=== PATIENT | male | born 1960 | race Hispanic/Latino ===

== ENCOUNTER 2022-07-07 16:56 | Inpatient (IN) | payer SELFPAY ==
[2022-07-07 17:52] LABS: Hemoglobin 9.6 g/dL (14.0-18.0); Mean Corpuscular HGB CONC 32.7 g/dL (32.0-36.0); Mean Corpuscular Hemoglobin 31.7 pg (27.0-31.0); Mean Corpuscular Volume 97.1 fl (78.0-98.0); Platelet Count 69 10x3/uL (130-400); RBC Distribution Width 14.7 % (11.5-14.5); Red Blood Cell (RBC) Count 3.03 mill/uL (4.70-6.10); White Blood Cell (WBC) Count 7.9 10x3/uL (4.8-10.8)
[2022-07-07 18:01] LABS: INR-International Normal Ratio 1.8; PTT 35.4 sec (22.9-36.1); Prothrombin Time 21.2 sec (12.0-14.7)
[2022-07-07 18:10] LABS: #Lymphocytes 0.6 thou/uL (1.20-3.40); #Monocytes 0.6 thou/uL (0.11-0.59); #Neutrophils 6.7 thou/uL (1.40-6.50); %Basophils 0.4 % (0.0-1.0); %Eosinophils 0.1 % (0.0-10.0); %Lymphocytes 7.8 % (21.0-51.0); %Monocytes 7.8 % (0.0-10.0); %Neutrophils 83.9 % (42.0-75.0); ALT (SGPT) 39 U/L (8-55); AST (SGOT) 145 U/L (5-34); Albumin 2.7 g/dL (3.4-4.8); Alkaline Phosphatase 157 U/L (40-110); Anion Gap 21 mmol/L (10-20); BUN (Urea Nitrogen) 10 mg/dL (8.4-25.7); Bilirubin, Total 2.8 mg/dL (0.2-1.2); Calc. Creatinine Clearance 0 mL/min (70-130); Calcium 7.5 mg/dL (7.8-10.44); Carbon Dioxide 15 mmol/L (23-31); Chloride 103 mmol/L (98-107); Estimated GFR 103; Globulin 2.9 g/dL (2.4-3.5); Glucose 155 mg/dL (80-115); Potassium 5.4 mmol/L (3.5-5.1); Protein, Total 5.6 g/dL (5.8-8.1); Sodium 134 mmol/L (136-145)
[2022-07-07] MEDS ORDERED: Octreotide Acetate 500 MCG/ML VIAL ONE ×2 (18:18→18:20)
[2022-07-07] MEDS ORDERED: Pantoprazole 40 MG VIAL ONE (18:18)
[2022-07-07 18:20] LABS: MDiff Complete? YES; Platelet Morphology Comment Appears Decreased; Polychromasia SLIGHT = 2-3 cells (100X) (0-2/hpf)
[2022-07-07 18:36] LABS: Acetaminophen Less than 10.0 mcg/mL (10.0-30.0); Alcohol 236 mg/dL (Less than 10); Salicylate Less than 8.0 mg/dL (15.0-30.0)
[2022-07-07] MEDS ORDERED: Pantoprazole 80 MG, Admixture Fee 1 EACH in Sodium Chloride 0.9% 100 ML IVPB SCH (18:45)
[2022-07-07] MEDS ORDERED: Octreotide Acetate 1,250 MCG in Sodium Chloride 0.9% 250 ML 250 ML IVPB SCH ×2 (18:45→19:15)
[2022-07-07] MEDS ORDERED: Octreotide Acetate 50 MCG/ML AMP SLOW IVP SCH (18:45)
[2022-07-07] MEDS ORDERED: Dextrose 50% Abboject 50 ML SYRINGE SLOW IVP PRN (19:09)
[2022-07-07] MEDS ORDERED: Lorazepam 2 MG/ML VIAL IM PRN (19:09)
[2022-07-07] MEDS ORDERED: Lorazepam 1 MG TAB PO PRN (19:09)
[2022-07-07] MEDS ORDERED: Dextrose 5% in Water 1,000 ML IV PRN (19:09)
[2022-07-07] MEDS ORDERED: Ondansetron ODT 4 MG TAB PO PRN (19:09)
[2022-07-07] MEDS ORDERED: Acetaminophen 650 MG Suppository PR PRN (19:13)
[2022-07-07] MEDS ORDERED: EPINEPHrine 1 MG/ML AMP IVP PRN (19:13)
[2022-07-07] MEDS ORDERED: Acetaminophen 325 MG TAB PO PRN (19:13)
[2022-07-07] MEDS ORDERED: Electrolyte Replacement Protocol 1 EACH FS SCH (19:15)
[2022-07-07] MEDS ORDERED: Pantoprazole 80 MG in Sodium Chloride 0.9% 100 ML IVPB SCH (19:18)
[2022-07-07 19:36] LABS: Magnesium 1.7 mg/dL (1.6-2.6); Phosphorus 3.2 mg/dL (2.3-4.7)
[2022-07-07 19:48] LABS: #Lymphocytes 0.9 thou/uL (1.20-3.40); #Neutrophils 7.7 thou/uL (1.40-6.50); %Basophils 0.3 % (0.0-1.0); %Eosinophils 0.1 % (0.0-10.0); %Lymphocytes 9.4 % (21.0-51.0); %Monocytes 10.6 % (0.0-10.0); %Neutrophils 79.6 % (42.0-75.0); Hemoglobin 9.7 g/dL (14.0-18.0); Mean Corpuscular Hemoglobin 32.2 pg (27.0-31.0); Mean Corpuscular Volume 97.4 fl (78.0-98.0); Mean Platelet Volume 9.1 fL (7.4-10.4); Platelet Count 72 10x3/uL (130-400); RBC Distribution Width 14.7 % (11.5-14.5); Red Blood Cell (RBC) Count 3.01 mill/uL (4.70-6.10); White Blood Cell (WBC) Count 9.7 10x3/uL (4.8-10.8)
[2022-07-07] MEDS ORDERED: Magnesium 2 GM/50 ML(in water) 2 GM in Premix Bag 1 BAG IVPB SCH (20:00)
[2022-07-07 20:04] LABS: Anion Gap 21 mmol/L (10-20); BUN (Urea Nitrogen) 10 mg/dL (8.4-25.7); Bilirubin, Direct 1.7 mg/dL (0.1-0.3); Calc. Creatinine Clearance 0 mL/min (70-130); Calcium 7.6 mg/dL (7.8-10.44); Carbon Dioxide 15 mmol/L (23-31); Chloride 103 mmol/L (98-107); Estimated GFR 101; Glucose 142 mg/dL (80-115); Potassium 5.1 mmol/L (3.5-5.1); Sodium 134 mmol/L (136-145)
[2022-07-07 20:11] LABS: SARS-CoV-2 NAA Rapid Test Not Detected (NotDetected)
[2022-07-07] MEDS ORDERED: Ondansetron PF 4 MG/2 ML Vial ONE (20:48)
[2022-07-07] MEDS: Ondansetron PF 4 MG/2 ML Vial IVP PRN (20:53)
[2022-07-07] MEDS ORDERED: Folic Acid 1 MG TAB PO SCH (21:00)
[2022-07-07] MEDS ORDERED: Multivit, Therapeutic 1 TAB PO SCH (21:00)
[2022-07-07] MEDS ORDERED: Acetaminophen 650 MG Suppository ONE (21:34)
[2022-07-07 23:19] LABS: HIV (1/2) Antibody/Antigen Non-Reactive (NonReactive); HIV 1/2 INDEX 0.14 S/CO (<1.00); Hep C IgG Ab Non-Reactive (NonReactive); Hep C Index 0.07 S/CO (0-0.79)
[2022-07-08] MEDS: Lorazepam 1 MG TAB PO SCH ×5 (00:56→22:02)
[2022-07-08 01:07] LABS: Hemoglobin 9.6 g/dL (14.0-18.0); Platelet Count 70 10x3/uL (130-400)
[2022-07-08 01:12] LABS: Troponin I 0.031 ng/mL (< 0.028)
[2022-07-08] MEDS ORDERED: EPINEPHrine 1 MG/10 ML Abboject SYRINGE ONE (01:19)
[2022-07-08] MEDS ORDERED: Metoclopramide HCl 10 MG/2 ML VIAL IVP SCH (01:30)
[2022-07-08] MEDS: Lactated Ringer's 1,000 ML IV SCH ×2 (01:39→13:49)
[2022-07-08] MEDS ORDERED: Midazolam HCl 2 mg/2 ml Vial ONE (02:01)
[2022-07-08] MEDS ORDERED: Ondansetron PF 4 MG/2 ML Vial ONE (02:08)
[2022-07-08] MEDS ORDERED: PROPOFOL 200 MG/20 ML VIAL ONE (02:08)
[2022-07-08] MEDS ORDERED: Succinylcholine Chloride 100 MG/5 ML SYRINGE FS ONE (02:08)
[2022-07-08] MEDS ORDERED: Lidocaine 1% PF 5 ML VIAL ONE (02:08)
[2022-07-08] MEDS ORDERED: Ondansetron HCl/PF 4 MG/2 ML Vial IVP PRN (02:47)
[2022-07-08] MEDS ORDERED: Promethazine HCl 25 MG/ML VIAL IM PRN (02:47)
[2022-07-08] MEDS: cefTRIAXone\\ROCEPHIN 1 GM in Sodium Chloride 0.9% 100 ML IVPB SCH (04:40)
[2022-07-08 08:08] LABS: Hemoglobin 8.7 g/dL (14.0-18.0); Platelet Count 70 10x3/uL (130-400)
[2022-07-08 08:21] LABS: INR-International Normal Ratio 1.7; PTT 36.4 sec (22.9-36.1); Prothrombin Time 20.9 sec (12.0-14.7)
[2022-07-08 08:35] LABS: ALT (SGPT) 146 U/L (8-55); AST (SGOT) 621 U/L (5-34); Albumin 2.7 g/dL (3.4-4.8); Alkaline Phosphatase 134 U/L (40-110); Anion Gap 23 mmol/L (10-20); BUN (Urea Nitrogen) 11 mg/dL (8.4-25.7); Bilirubin, Total 5.3 mg/dL (0.2-1.2); Calc. Creatinine Clearance 118 mL/min (70-130); Calcium 8.1 mg/dL (7.8-10.44); Carbon Dioxide 15 mmol/L (23-31); Chloride 107 mmol/L (98-107); Estimated GFR 96; Globulin 2.7 g/dL (2.4-3.5); Glucose 148 mg/dL (80-115); Potassium 5.2 mmol/L (3.5-5.1); Protein, Total 5.4 g/dL (5.8-8.1); Sodium 140 mmol/L (136-145)
[2022-07-08] MEDS: Multivit, Therapeutic 1 TAB PO SCH (09:34)
[2022-07-08] MEDS: Folic Acid 1 MG TAB PO SCH (09:35)
[2022-07-08] MEDS: Ondansetron PF 4 MG/2 ML Vial IVP PRN (09:49)
[2022-07-08] MEDS ORDERED: Sodium Bicarbonate 150 MEQ in Dextrose 5% in Water 1,000 ML IV SCH ×2 (18:15→18:45)
[2022-07-08 18:27] LABS: Hemoglobin 8.6 g/dL (14.0-18.0)
[2022-07-08 18:44] LABS: Actual Bicarbonate (HCO3v) 23 mEq/L (22-28); Base Excess 0.3 mEq/L (-2.0 to +3.0); Calcium, Ionized (venous) 1.09 mmol/L (1.16-1.32); Chloride (VBG) 107 mmol/L (98-106); Hemoglobin (Hb) 9.5 g/dL (13.1-17.2); Potassium (VBG) 4.67 mmol/L (3.70-5.30); Sodium 139.3 mmol/L (133-146); pH (venous) 7.51 (7.32-7.43)
[2022-07-08 19:07] LABS: Lactic Acid 5.3 mmol/L (0.5-2.2)
[2022-07-08 19:09] LABS: Magnesium 1.7 mg/dL (1.6-2.6)
[2022-07-08] MEDS ORDERED: Lorazepam 1 MG TAB PO PRN (19:12)
[2022-07-08] MEDS ORDERED: Sodium Phosphate 15 MMOL in Sodium Chloride 0.9% 250 ML 250 ML IVPB SCH (20:00)
[2022-07-08] MEDS ORDERED: Lorazepam 2 MG/ML VIAL SLOW IVP PRN (20:14)
[2022-07-08 20:20] LABS: Amphetamine Not Detected (NotDetected); Barbiturates Screen Not Detected (NotDetected); Benzodiazepine Screen Detected (NotDetected); Cocaine Metabolite Screen Not Detected (NotDetected); Methadone Not Detected (NotDetected); Methamphetamine Not Detected (NotDetected); Opiate Screen Not Detected (NotDetected); Oxycodone Screen Not Detected (NotDetected); Phencyclidine (PCP) Not Detected (NotDetected); THC/Cannabinoid Screen Not Detected (NotDetected); Tricyclic Screen Not Detected (NotDetected)
[2022-07-08 21:27] LABS: ALT (SGPT) 159 U/L (8-55); AST (SGOT) 659 U/L (5-34); Albumin 2.9 g/dL (3.4-4.8); Alkaline Phosphatase 135 U/L (40-110); Anion Gap 17 mmol/L (10-20); BUN (Urea Nitrogen) 14 mg/dL (8.4-25.7); Bilirubin, Total 5.8 mg/dL (0.2-1.2); Calc. Creatinine Clearance 98 mL/min (70-130); Calcium 8.5 mg/dL (7.8-10.44); Carbon Dioxide 21 mmol/L (23-31); Chloride 108 mmol/L (98-107); Estimated GFR 76; Globulin 2.9 g/dL (2.4-3.5); Glucose 183 mg/dL (80-115); Lipase 32 U/L (8-78); Potassium 4.7 mmol/L (3.5-5.1); Protein, Total 5.8 g/dL (5.8-8.1); Sodium 141 mmol/L (136-145)
[2022-07-08] MEDS: pyridOXINE 50 MG (B6) TAB PO SCH (21:32)
[2022-07-08] MEDS: Pantoprazole 40 MG VIAL IVP SCH (21:36)
[2022-07-08] MEDS: Lorazepam 2 MG/ML VIAL SLOW IVP SCH (21:37)
[2022-07-08 21:55] LABS: Free T4 (Free Thyroxine) 0.81 ng/dL (0.70-1.48)
[2022-07-09] MEDS: Lorazepam 2 MG/ML VIAL SLOW IVP SCH ×3 (03:46→11:50)
[2022-07-09 04:21] LABS: INR-International Normal Ratio 2.1; PTT 38.2 sec (22.9-36.1)
[2022-07-09 04:25] LABS: Lactic Acid 1.6 mmol/L (0.5-2.2)
[2022-07-09 04:31] LABS: ALT (SGPT) 153 U/L (8-55); AST (SGOT) 572 U/L (5-34); Albumin 2.5 g/dL (3.4-4.8); Alkaline Phosphatase 115 U/L (40-110); Anion Gap 14 mmol/L (10-20); BUN (Urea Nitrogen) 16 mg/dL (8.4-25.7); Bilirubin, Total 4.6 mg/dL (0.2-1.2); Calc. Creatinine Clearance 109 mL/min (70-130); Calcium 8.2 mg/dL (7.8-10.44); Carbon Dioxide 26 mmol/L (23-31); Chloride 108 mmol/L (98-107); Estimated GFR 87; Globulin 2.7 g/dL (2.4-3.5); Glucose 191 mg/dL (80-115); Potassium 3.8 mmol/L (3.5-5.1); Protein, Total 5.2 g/dL (5.8-8.1); Sodium 144 mmol/L (136-145)
[2022-07-09] MEDS: cefTRIAXone\\ROCEPHIN 1 GM in Sodium Chloride 0.9% 100 ML IVPB SCH (05:11)
[2022-07-09 05:13] LABS: Hep B Surface AG-Rflx Sendout Negative (Negative); Hepatitis B Core Total Negative (Negative); Hepatitis B Surface AB-Sendout Reactive (.)
[2022-07-09] MEDS: PHOS-NAK 1 PKT PACK PO SCH ×2 (07:44→11:50)
[2022-07-09] MEDS: Multivit, Therapeutic 1 TAB PO SCH (07:45)
[2022-07-09] MEDS ORDERED: Magnesium 2 GM/50 ML(in water) 2 GM in Premix Bag 1 BAG IVPB SCH (08:00)
[2022-07-09] MEDS: Dextrose 5 %-0.45 % NaCl 1,000 ML IV SCH (08:16)
[2022-07-09] MEDS: Pantoprazole 40 MG VIAL IVP SCH ×2 (08:17→20:23)
[2022-07-09] MEDS: Folic Acid 1 MG TAB PO SCH (08:17)
[2022-07-09 09:56] LABS: %Basophils 0.2 % (0.0-1.0); %Eosinophils 0.4 % (0.0-10.0); %Lymphocytes 11.1 % (21.0-51.0); %Monocytes 11.2 % (0.0-10.0); Hemoglobin 8.6 g/dL (14.0-18.0); Mean Corpuscular Volume 96.9 fl (78.0-98.0); Mean Platelet Volume 10.1 fL (7.4-10.4); Platelet Count 51 10x3/uL (130-400); RBC Distribution Width 15.2 % (11.5-14.5); Red Blood Cell (RBC) Count 2.68 mill/uL (4.70-6.10); White Blood Cell (WBC) Count 9.1 10x3/uL (4.8-10.8)
[2022-07-09] MEDS ORDERED: Lorazepam 2 MG/ML VIAL SLOW IVP PRN (19:12)
[2022-07-09] MEDS ORDERED: Lorazepam 1 MG TAB PO PRN (19:12)
[2022-07-09] MEDS ORDERED: Lorazepam 0.5 MG TAB PO SCH (19:15)
[2022-07-09] MEDS ORDERED: Lorazepam 2 MG/ML VIAL SLOW IVP SCH (19:15)
[2022-07-09] MEDS: pyridOXINE 50 MG (B6) TAB PO SCH (20:27)
[2022-07-10] MEDS: cefTRIAXone\\ROCEPHIN 1 GM in Sodium Chloride 0.9% 100 ML IVPB SCH (03:54)
[2022-07-10 04:21] LABS: #Eosinphils 0.1 thou/uL (0.0-0.7); #Lymphocytes 1.6 thou/uL (1.20-3.40); #Monocytes 1.5 thou/uL (0.11-0.59); #Neutrophils 8.6 thou/uL (1.40-6.50); %Basophils 0.3 % (0.0-1.0); %Eosinophils 0.6 % (0.0-10.0); %Lymphocytes 13.5 % (21.0-51.0); %Monocytes 12.6 % (0.0-10.0); %Neutrophils 72.9 % (42.0-75.0); Hemoglobin 8.4 g/dL (14.0-18.0); Mean Corpuscular HGB CONC 32.3 g/dL (32.0-36.0); Mean Corpuscular Hemoglobin 31.6 pg (27.0-31.0); Mean Corpuscular Volume 97.8 fl (78.0-98.0); Mean Platelet Volume 10.5 fL (7.4-10.4); Platelet Count 72 10x3/uL (130-400); RBC Distribution Width 15.1 % (11.5-14.5); Red Blood Cell (RBC) Count 2.66 mill/uL (4.70-6.10); White Blood Cell (WBC) Count 11.8 10x3/uL (4.8-10.8)
[2022-07-10] MEDS: Dextrose 5 %-0.45 % NaCl 1,000 ML IV SCH ×3 (04:22→16:09)
[2022-07-10 04:24] LABS: INR-International Normal Ratio 1.8; PTT 33.8 sec (22.9-36.1); Prothrombin Time 21.5 sec (12.0-14.7)
[2022-07-10 04:33] LABS: Phosphorus 1.9 mg/dL (2.3-4.7)
[2022-07-10 04:36] LABS: ALT (SGPT) 160 U/L (8-55); AST (SGOT) 421 U/L (5-34); Albumin 2.8 g/dL (3.4-4.8); Alkaline Phosphatase 126 U/L (40-110); Anion Gap 11 mmol/L (10-20); BUN (Urea Nitrogen) 29 mg/dL (8.4-25.7); Bilirubin, Total 4.2 mg/dL (0.2-1.2); Calc. Creatinine Clearance 85 mL/min (70-130); Carbon Dioxide 27 mmol/L (23-31); Chloride 108 mmol/L (98-107); Estimated GFR 65; Globulin 2.9 g/dL (2.4-3.5); Glucose 179 mg/dL (80-115); Magnesium 2.4 mg/dL (1.6-2.6); Potassium 3.7 mmol/L (3.5-5.1); Protein, Total 5.7 g/dL (5.8-8.1); Sodium 142 mmol/L (136-145)
[2022-07-10] MEDS: Folic Acid 1 MG TAB PO SCH (07:15)
[2022-07-10] MEDS: Multivit, Therapeutic 1 TAB PO SCH (07:16)
[2022-07-10] MEDS ORDERED: Potassium Phosphate 15 MMOL in Sodium Chloride 0.9% 100 ML IVPB SCH (08:00)
[2022-07-10] MEDS: Pantoprazole 40 MG VIAL IVP SCH ×2 (09:36→21:09)
[2022-07-10 11:17] LABS: ANA Symphony (Qualitative) Negative (Negative); ANA Symphony (Quantitative) 0.4 Ratio (< 0.7 Negative); EliA Vaculitis New Method **** NEW METHOD ****; Mitochondrial Ab 1.1 U/mL (<4 Negative); dsDNA IgG Antibody 2.3 IU/mL (<10 Negative)
[2022-07-10] MEDS ORDERED: Lorazepam 2 MG/ML VIAL SLOW IVP PRN (19:12)
[2022-07-10] MEDS ORDERED: Lorazepam 0.5 MG TAB PO PRN (19:12)
[2022-07-10] MEDS: pyridOXINE 50 MG (B6) TAB PO SCH (21:09)
[2022-07-11] MEDS: Dextrose 5 %-0.45 % NaCl 1,000 ML IV SCH ×3 (00:31→10:35)
[2022-07-11 03:25] LABS: #Eosinphils 0.4 thou/uL (0.0-0.7); #Lymphocytes 1.4 thou/uL (1.20-3.40); #Neutrophils 5.5 thou/uL (1.40-6.50); %Basophils 0.4 % (0.0-1.0); %Eosinophils 4.3 % (0.0-10.0); %Lymphocytes 16.8 % (21.0-51.0); %Monocytes 12.3 % (0.0-10.0); %Neutrophils 66.2 % (42.0-75.0); Hemoglobin 7.2 g/dL (14.0-18.0); Mean Corpuscular HGB CONC 31.9 g/dL (32.0-36.0); Mean Corpuscular Hemoglobin 31.4 pg (27.0-31.0); Mean Corpuscular Volume 98.5 fl (78.0-98.0); Mean Platelet Volume 9.7 fL (7.4-10.4); Platelet Count 74 10x3/uL (130-400); RBC Distribution Width 14.8 % (11.5-14.5); Red Blood Cell (RBC) Count 2.29 mill/uL (4.70-6.10); White Blood Cell (WBC) Count 8.4 10x3/uL (4.8-10.8)
[2022-07-11 03:39] LABS: ALT (SGPT) 133 U/L (8-55); AST (SGOT) 310 U/L (5-34); Albumin 2.2 g/dL (3.4-4.8); Alkaline Phosphatase 113 U/L (40-110); Anion Gap 10 mmol/L (10-20); BUN (Urea Nitrogen) 15 mg/dL (8.4-25.7); Bilirubin, Total 3.9 mg/dL (0.2-1.2); Calc. Creatinine Clearance 128 mL/min (70-130); Calcium 7.3 mg/dL (7.8-10.44); Carbon Dioxide 27 mmol/L (23-31); Chloride 106 mmol/L (98-107); Estimated GFR 98; Globulin 2.6 g/dL (2.4-3.5); Glucose 181 mg/dL (80-115); Potassium 3.1 mmol/L (3.5-5.1); Protein, Total 4.8 g/dL (5.8-8.1); Sodium 140 mmol/L (136-145)
[2022-07-11] MEDS: cefTRIAXone\\ROCEPHIN 1 GM in Sodium Chloride 0.9% 100 ML IVPB SCH (04:46)
[2022-07-11] MEDS ORDERED: Potassium Bicarbonate/Cit Ac 20 MEQ TAB PO SCH (08:00)
[2022-07-11] MEDS ORDERED: Potassium Chloride 20 MEQ TAB PO SCH (08:30)
[2022-07-11] MEDS: Multivit, Therapeutic 1 TAB PO SCH (09:46)
[2022-07-11] MEDS: Pantoprazole 40 MG VIAL IVP SCH ×2 (09:46→21:22)
[2022-07-11] MEDS: Folic Acid 1 MG TAB PO SCH (09:46)
[2022-07-11 14:37] LABS: Potassium 3.4 mmol/L (3.5-5.1)
[2022-07-11 15:28] LABS: Hemoglobin 7.5 g/dL (14.0-18.0); Platelet Count 86 10x3/uL (130-400)
[2022-07-11] MEDS: pyridOXINE 50 MG (B6) TAB PO SCH (21:22)
[2022-07-12] MEDS: Dextrose 5 %-0.45 % NaCl 1,000 ML IV SCH (01:13)
[2022-07-12] MEDS: cefTRIAXone\\ROCEPHIN 1 GM in Sodium Chloride 0.9% 100 ML IVPB SCH (04:52)
[2022-07-12] MEDS: Folic Acid 1 MG TAB PO SCH (09:29)
[2022-07-12] MEDS: Multivit, Therapeutic 1 TAB PO SCH (09:29)
[2022-07-12] MEDS: Pantoprazole 40 MG VIAL IVP SCH ×2 (09:29→21:25)
[2022-07-12 09:36] LABS: ALT (SGPT) 132 U/L (8-55); AST (SGOT) 245 U/L (5-34); Albumin 2.5 g/dL (3.4-4.8); Alkaline Phosphatase 151 U/L (40-110); Anion Gap 9 mmol/L (10-20); BUN (Urea Nitrogen) 8 mg/dL (8.4-25.7); Bilirubin, Total 5.3 mg/dL (0.2-1.2); Calc. Creatinine Clearance 146 mL/min (70-130); Calcium 7.2 mg/dL (7.8-10.44); Carbon Dioxide 23 mmol/L (23-31); Chloride 101 mmol/L (98-107); Estimated GFR 101; Globulin 2.6 g/dL (2.4-3.5); Glucose 149 mg/dL (80-115); Potassium 3.2 mmol/L (3.5-5.1); Protein, Total 5.1 g/dL (5.8-8.1); Sodium 130 mmol/L (136-145)
[2022-07-12] MEDS ORDERED: Potassium Chloride 20 MEQ TAB PO SCH (09:45)
[2022-07-12 09:52] LABS: Band 7 % (5-11); Eosinophils 2 % (0-10); Hemoglobin 7.7 g/dL (14.0-18.0); Lymphocytes 17 % (21-51); MDiff Complete? YES; Mean Corpuscular HGB CONC 32.3 g/dL (32.0-36.0); Mean Corpuscular Hemoglobin 31.6 pg (27.0-31.0); Mean Corpuscular Volume 97.9 fl (78.0-98.0); Monocytes 16 % (0-10); Neutrophil 56 % (42-75); Platelet Count 94 10x3/uL (130-400); Platelet Morphology Comment Appears Decreased; Polychromasia SLIGHT = 2-3 cells (100X) (0-2/hpf); RBC Distribution Width 15.2 % (11.5-14.5); Reactive Lymphocytes 2 % (0-10); Red Blood Cell (RBC) Count 2.42 mill/uL (4.70-6.10)
[2022-07-12 16:42] LABS: Potassium 3.3 mmol/L (3.5-5.1)
[2022-07-12] MEDS: pyridOXINE 50 MG (B6) TAB PO SCH (21:25)
[2022-07-13] MEDS: cefTRIAXone\\ROCEPHIN 1 GM in Sodium Chloride 0.9% 100 ML IVPB SCH (04:43)
[2022-07-13 07:48] LABS: ALT (SGPT) 115 U/L (8-55); AST (SGOT) 183 U/L (5-34); Albumin 2.5 g/dL (3.4-4.8); Alkaline Phosphatase 167 U/L (40-110); Anion Gap 10 mmol/L (10-20); BUN (Urea Nitrogen) 9 mg/dL (8.4-25.7); Bilirubin, Total 5.9 mg/dL (0.2-1.2); Calc. Creatinine Clearance 146 mL/min (70-130); Calcium 7.3 mg/dL (7.8-10.44); Carbon Dioxide 21 mmol/L (23-31); Chloride 99 mmol/L (98-107); Estimated GFR 101; Globulin 2.7 g/dL (2.4-3.5); Glucose 142 mg/dL (80-115); Potassium 3.2 mmol/L (3.5-5.1); Protein, Total 5.2 g/dL (5.8-8.1); Sodium 127 mmol/L (136-145)
[2022-07-13 08:35] LABS: Band 11 % (5-11); Eosinophils 4 % (0-10); Hemoglobin 7.6 g/dL (14.0-18.0); Lymphocytes 15 % (21-51); MDiff Complete? YES; Mean Corpuscular Hemoglobin 32.1 pg (27.0-31.0); Mean Corpuscular Volume 97.3 fl (78.0-98.0); Mean Platelet Volume 8.8 fL (7.4-10.4); Monocytes 13 % (0-10); Neutrophil 57 % (42-75); Platelet Count 101 10x3/uL (130-400); Platelet Morphology Comment Appears Decreased; Polychromasia SLIGHT = 2-3 cells (100X) (0-2/hpf); RBC Distribution Width 15.6 % (11.5-14.5); Red Blood Cell (RBC) Count 2.38 mill/uL (4.70-6.10); Target Cells SLIGHT = 2-5 cells (100X) (0-1/hpf)
[2022-07-13] MEDS: Multivit, Therapeutic 1 TAB PO SCH (09:46)
[2022-07-13] MEDS: Pantoprazole 40 MG VIAL IVP SCH ×2 (09:46→21:30)
[2022-07-13] MEDS: Folic Acid 1 MG TAB PO SCH (09:46)
[2022-07-13] MEDS ORDERED: Potassium Chloride 20 MEQ TAB PO SCH (10:45)
[2022-07-13 16:49] LABS: Bacteria/HPF None Seen HPF (None Seen); Bilirubin 2+ (Negative); Blood, Urine Negative (Negative); Clarity Clear (Clear); Glucose, Urine (Dipstick) 100 mg/dL (Negative); Ketone, Urine Negative (Negative); Leukocyte Negative Leu/uL (Negative); Nitrite Negative (Negative); Protein, Urine (Dipstick) Negative (Neg-Trace); RBC/HPF 0-3 HPF (0-3); Specific Gravity, Urine 1.012 (1.002-1.036); Squamous Epithelial 0-3 HPF (0-3); Urobilinogen 3 mg/dL (Less than 2); WBC/HPF 0-3 HPF (0-3); pH, Urine 6.5 (5.0-9.0)
[2022-07-13 17:07] LABS: Potassium 3.5 mmol/L (3.5-5.1)
[2022-07-13] MEDS: Simethicone Chewable 80 MG TAB PO PRN (18:07)
[2022-07-13] MEDS: pyridOXINE 50 MG (B6) TAB PO SCH (21:30)
[2022-07-14 07:07] LABS: Hemoglobin 7.8 g/dL (14.0-18.0); Mean Corpuscular HGB CONC 32.2 g/dL (32.0-36.0); Mean Corpuscular Hemoglobin 31.6 pg (27.0-31.0); Mean Corpuscular Volume 98.3 fl (78.0-98.0); Mean Platelet Volume 8.5 fL (7.4-10.4); Platelet Count 147 10x3/uL (130-400); RBC Distribution Width 15.7 % (11.5-14.5); Red Blood Cell (RBC) Count 2.46 mill/uL (4.70-6.10); White Blood Cell (WBC) Count 8.7 10x3/uL (4.8-10.8)
[2022-07-14 07:28] LABS: ALT (SGPT) 101 U/L (8-55); AST (SGOT) 141 U/L (5-34); Albumin 2.3 g/dL (3.4-4.8); Alkaline Phosphatase 188 U/L (40-110); Anion Gap 11 mmol/L (10-20); BUN (Urea Nitrogen) 9 mg/dL (8.4-25.7); Bilirubin, Total 6.3 mg/dL (0.2-1.2); Calc. Creatinine Clearance 163 mL/min (70-130); Calcium 7.8 mg/dL (7.8-10.44); Carbon Dioxide 23 mmol/L (23-31); Chloride 100 mmol/L (98-107); Estimated GFR 102; Globulin 2.9 g/dL (2.4-3.5); Glucose 146 mg/dL (80-115); Potassium 3.8 mmol/L (3.5-5.1); Protein, Total 5.2 g/dL (5.8-8.1); Sodium 130 mmol/L (136-145)
[2022-07-14] MEDS ORDERED: Potassium Chloride 20 MEQ TAB PO SCH (08:00)
[2022-07-14 08:14] LABS: Band 6 % (5-11); Eosinophils 1 % (0-10); Lymphocytes 13 % (21-51); MDiff Complete? YES; Monocytes 18 % (0-10); Neutrophil 60 % (42-75); Platelet Morphology Comment Appears Adequate; Polychromasia MODERATE = 3-4 cells (100X) (0-2/hpf); Target Cells SLIGHT = 2-5 cells (100X) (0-1/hpf)
[2022-07-14] MEDS: Spironolactone 25 MG TAB PO SCH ×2 (09:29→17:41)
[2022-07-14] MEDS: Multivit, Therapeutic 1 TAB PO SCH (09:29)
[2022-07-14] MEDS: Folic Acid 1 MG TAB PO SCH (09:29)
[2022-07-14] MEDS: Furosemide 20 MG TAB PO SCH (09:29)
[2022-07-14] MEDS: Pantoprazole 40 MG VIAL IVP SCH ×2 (09:29→20:30)
[2022-07-14] MEDS: pyridOXINE 50 MG (B6) TAB PO SCH (20:31)
[2022-07-15 05:54] LABS: Anion Gap 12 mmol/L (10-20); BUN (Urea Nitrogen) 10 mg/dL (8.4-25.7); Calc. Creatinine Clearance 154 mL/min (70-130); Carbon Dioxide 18 mmol/L (23-31); Chloride 99 mmol/L (98-107); Estimated GFR 100; Glucose 162 mg/dL (80-115); Potassium 4.1 mmol/L (3.5-5.1); Sodium 125 mmol/L (136-145)
[2022-07-15] MEDS ORDERED: Magnesium 2 GM/50 ML(in water) 2 GM in Premix Bag 1 BAG IVPB SCH (08:00)
[2022-07-15] MEDS: Multivit, Therapeutic 1 TAB PO SCH (09:57)
[2022-07-15] MEDS: Folic Acid 1 MG TAB PO SCH (09:57)
[2022-07-15] MEDS: Rifaximin 550 MG TAB PO SCH ×2 (09:58→21:20)
[2022-07-15] MEDS: Thiamine HCl 200 MG/2 ML VIAL SLOW IVP SCH (09:58)
[2022-07-15] MEDS: Pantoprazole 40 MG VIAL IVP SCH (09:59)
[2022-07-15] MEDS: Sodium Bicarbonate Tab 325 MG TAB PO SCH ×3 (16:13→21:21)
[2022-07-15 17:58] LABS: Anion Gap 12 mmol/L (10-20); BUN (Urea Nitrogen) 11 mg/dL (8.4-25.7); Calc. Creatinine Clearance 154 mL/min (70-130); Calcium 7.9 mg/dL (7.8-10.44); Carbon Dioxide 20 mmol/L (23-31); Chloride 98 mmol/L (98-107); Estimated GFR 100; Glucose 167 mg/dL (80-115); Potassium 4.1 mmol/L (3.5-5.1); Sodium 126 mmol/L (136-145)
[2022-07-15] MEDS: pyridOXINE 50 MG (B6) TAB PO SCH (21:20)
[2022-07-15] MEDS: Lansoprazole 15 MG/5 ML (BATCHED)UDCUP PO SCH (21:21)
[2022-07-16] MEDS: Sodium Bicarbonate Tab 325 MG TAB PO SCH ×2 (02:03→05:34)
[2022-07-16 06:51] LABS: White Blood Cell (WBC) Count 9.3 10x3/uL (4.8-10.8)
[2022-07-16 06:54] LABS: Hemoglobin 7.9 g/dL (14.0-18.0); Mean Corpuscular HGB CONC 31.4 g/dL (32.0-36.0); Mean Corpuscular Hemoglobin 30.7 pg (27.0-31.0); Mean Corpuscular Volume 97.7 fl (78.0-98.0); Platelet Count 237 10x3/uL (130-400); RBC Distribution Width 15.3 % (11.5-14.5); Red Blood Cell (RBC) Count 2.56 mill/uL (4.70-6.10)
[2022-07-16 07:03] LABS: INR-International Normal Ratio 1.2; Prothrombin Time 16.2 sec (12.0-14.7)
[2022-07-16 07:10] LABS: ALT (SGPT) 81 U/L (8-55); AST (SGOT) 106 U/L (5-34); Albumin 2.8 g/dL (3.4-4.8); Alkaline Phosphatase 217 U/L (40-110); Anion Gap 11 mmol/L (10-20); BUN (Urea Nitrogen) 11 mg/dL (8.4-25.7); Bilirubin, Total 7.1 mg/dL (0.2-1.2); Calc. Creatinine Clearance 155 mL/min (70-130); Calcium 7.9 mg/dL (7.8-10.44); Carbon Dioxide 22 mmol/L (23-31); Chloride 95 mmol/L (98-107); Estimated GFR 99; Globulin 3.1 g/dL (2.4-3.5); Glucose 134 mg/dL (80-115); Protein, Total 5.9 g/dL (5.8-8.1); Sodium 124 mmol/L (136-145)
[2022-07-16 08:10] LABS: Band 1 % (5-11); Eosinophils 4 % (0-10); Lymphocytes 18 % (21-51); MDiff Complete? YES; Monocytes 12 % (0-10); Neutrophil 64 % (42-75); Platelet Morphology Comment Appears Adequate; Polychromasia MODERATE = 3-4 cells (100X) (0-2/hpf); Target Cells SLIGHT = 2-5 cells (100X) (0-1/hpf)
[2022-07-16] MEDS: Lansoprazole 15 MG/5 ML (BATCHED)UDCUP PO SCH ×2 (08:59→20:07)
[2022-07-16] MEDS: Multivit, Therapeutic 1 TAB PO SCH (09:00)
[2022-07-16] MEDS: Folic Acid 1 MG TAB PO SCH (09:00)
[2022-07-16] MEDS: Thiamine HCl 200 MG/2 ML VIAL SLOW IVP SCH (09:00)
[2022-07-16] MEDS: Rifaximin 550 MG TAB PO SCH ×2 (09:00→20:08)
[2022-07-16] MEDS: Spironolactone 25 MG TAB PO SCH ×2 (09:00→20:07)
[2022-07-16] MEDS: Furosemide 20 MG TAB PO SCH (09:00)
[2022-07-16 13:20] LABS: Anion Gap 11 mmol/L (10-20); BUN (Urea Nitrogen) 11 mg/dL (8.4-25.7); Calc. Creatinine Clearance 161 mL/min (70-130); Carbon Dioxide 23 mmol/L (23-31); Chloride 96 mmol/L (98-107); Estimated GFR 100; Glucose 160 mg/dL (80-115); Sodium 126 mmol/L (136-145)
[2022-07-16] MEDS: pyridOXINE 50 MG (B6) TAB PO SCH (20:08)
[2022-07-17 06:38] LABS: #Basophils 0.1 thou/uL (0.0-0.2); #Eosinphils 0.2 thou/uL (0.0-0.7); #Lymphocytes 1.4 thou/uL (1.20-3.40); #Monocytes 1.4 thou/uL (0.11-0.59); #Neutrophils 7.5 thou/uL (1.40-6.50); %Basophils 0.9 % (0.0-1.0); %Eosinophils 2.3 % (0.0-10.0); %Lymphocytes 13.4 % (21.0-51.0); %Monocytes 13.5 % (0.0-10.0); %Neutrophils 69.9 % (42.0-75.0); Hemoglobin 7.7 g/dL (14.0-18.0); Mean Corpuscular HGB CONC 32.5 g/dL (32.0-36.0); Mean Corpuscular Hemoglobin 31.5 pg (27.0-31.0); Mean Corpuscular Volume 96.7 fl (78.0-98.0); Mean Platelet Volume 7.8 fL (7.4-10.4); Platelet Count 270 10x3/uL (130-400); RBC Distribution Width 15.2 % (11.5-14.5); Red Blood Cell (RBC) Count 2.45 mill/uL (4.70-6.10); White Blood Cell (WBC) Count 10.7 10x3/uL (4.8-10.8)
[2022-07-17 06:56] LABS: ALT (SGPT) 72 U/L (8-55); AST (SGOT) 94 U/L (5-34); Albumin 2.5 g/dL (3.4-4.8); Alkaline Phosphatase 223 U/L (40-110); Anion Gap 12 mmol/L (10-20); BUN (Urea Nitrogen) 12 mg/dL (8.4-25.7); Bilirubin, Total 5.4 mg/dL (0.2-1.2); Calc. Creatinine Clearance 163 mL/min (70-130); Calcium 7.9 mg/dL (7.8-10.44); Carbon Dioxide 21 mmol/L (23-31); Chloride 94 mmol/L (98-107); Estimated GFR 100; Globulin 3.1 g/dL (2.4-3.5); Glucose 167 mg/dL (80-115); Potassium 4.2 mmol/L (3.5-5.1); Protein, Total 5.6 g/dL (5.8-8.1); Sodium 123 mmol/L (136-145)
[2022-07-17] MEDS: Ondansetron PF 4 MG/2 ML Vial IVP PRN (07:20)
[2022-07-17] MEDS: Thiamine HCl 200 MG/2 ML VIAL SLOW IVP SCH (08:50)
[2022-07-17] MEDS: Lansoprazole 15 MG/5 ML (BATCHED)UDCUP PO SCH ×2 (08:51→20:50)
[2022-07-17] MEDS: prednisoLONE 10 MG ODT TAB PO SCH (08:51)
[2022-07-17] MEDS: Folic Acid 1 MG TAB PO SCH (08:51)
[2022-07-17] MEDS: Rifaximin 550 MG TAB PO SCH ×2 (08:51→20:50)
[2022-07-17] MEDS: Multivit, Therapeutic 1 TAB PO SCH (08:51)
[2022-07-17] MEDS: Furosemide 20 MG TAB PO SCH (08:52)
[2022-07-17] MEDS: Spironolactone 25 MG TAB PO SCH (08:52)
[2022-07-17] MEDS ORDERED: Furosemide 100 MG/10 ML VIAL SLOW IVP SCH (09:30)
[2022-07-17] MEDS ORDERED: Morphine 2 MG/ML VIAL SLOW IVP SCH (11:45)
[2022-07-17] MEDS: Albumin 25% 25 GM/100 ML BOT IVPB SCH ×2 (11:45→18:12)
[2022-07-17] MEDS: Simethicone Chewable 80 MG TAB PO PRN (12:15)
[2022-07-17] MEDS ORDERED: Dextrose 50% Abboject 50 ML SYRINGE SLOW IVP PRN (15:54)
[2022-07-17] MEDS ORDERED: Dextrose 5% in Water 1,000 ML IV PRN (15:54)
[2022-07-17 17:39] LABS: Anion Gap 12 mmol/L (10-20); BUN (Urea Nitrogen) 14 mg/dL (8.4-25.7); Calc. Creatinine Clearance 133 mL/min (70-130); Calcium 8.2 mg/dL (7.8-10.44); Carbon Dioxide 22 mmol/L (23-31); Chloride 94 mmol/L (98-107); Estimated GFR 88; Glucose 229 mg/dL (80-115); Potassium 4.5 mmol/L (3.5-5.1); Sodium 123 mmol/L (136-145)
[2022-07-17] MEDS: HumaLOG 300 UNITS/3 ML VIAL SC PRN (18:11)
[2022-07-17] MEDS: pyridOXINE 50 MG (B6) TAB PO SCH (20:50)
[2022-07-18] MEDS: Albumin 25% 25 GM/100 ML BOT IVPB SCH ×5 (00:06→23:04)
[2022-07-18] MEDS: Furosemide 100 MG/10 ML VIAL SLOW IVP SCH (05:15)
[2022-07-18] MEDS: HumaLOG 300 UNITS/3 ML VIAL SC PRN ×2 (06:13→23:04)
[2022-07-18 06:36] LABS: Anion Gap 11 mmol/L (10-20); BUN (Urea Nitrogen) 15 mg/dL (8.4-25.7); Calc. Creatinine Clearance 156 mL/min (70-130); Calcium 8.2 mg/dL (7.8-10.44); Carbon Dioxide 24 mmol/L (23-31); Chloride 93 mmol/L (98-107); Estimated GFR 98; Glucose 180 mg/dL (80-115); Potassium 4.2 mmol/L (3.5-5.1); Sodium 124 mmol/L (136-145)
[2022-07-18] MEDS ORDERED: Furosemide 100 MG/10 ML VIAL SLOW IVP SCH (09:00)
[2022-07-18] MEDS: Lansoprazole 15 MG/5 ML (BATCHED)UDCUP PO SCH ×2 (09:56→20:14)
[2022-07-18] MEDS: Thiamine HCl 200 MG/2 ML VIAL SLOW IVP SCH (09:59)
[2022-07-18] MEDS: Folic Acid 1 MG TAB PO SCH (09:59)
[2022-07-18] MEDS: Multivit, Therapeutic 1 TAB PO SCH (09:59)
[2022-07-18] MEDS: prednisoLONE 10 MG ODT TAB PO SCH (09:59)
[2022-07-18] MEDS: Rifaximin 550 MG TAB PO SCH ×2 (09:59→20:14)
[2022-07-18] MEDS ORDERED: Lidocaine 1% PF 5 ML VIAL ONE (11:10)
[2022-07-18] MEDS ORDERED: Sodium Bicarbonate 2.5 MEQ/5 ML VIAL ONE (11:10)
[2022-07-18 14:48] LABS: RBC Count-Automated (BF) 285 /cu.mm; WBC/Nucleated-Auto (BF) 261 /cu.mm
[2022-07-18 14:49] LABS: BF Color Yellow; Body Fluid Source Ascites Body Fluid; Clarity Cloudy/Turbid (Clear); Tube # 1
[2022-07-18 15:06] LABS: Lymphocytes 10 %
[2022-07-18 15:08] LABS: BF Segmented Neutrophils 60 %; Cell Count Non Hematic 30 %
[2022-07-18] MEDS: pyridOXINE 50 MG (B6) TAB PO SCH (20:13)
[2022-07-19] MEDS: Furosemide 100 MG/10 ML VIAL SLOW IVP SCH (05:41)
[2022-07-19] MEDS: Albumin 25% 25 GM/100 ML BOT IVPB SCH (05:41)
[2022-07-19 06:13] LABS: ALT (SGPT) 47 U/L (8-55); AST (SGOT) 57 U/L (5-34); Albumin 3.5 g/dL (3.4-4.8); Alkaline Phosphatase 157 U/L (40-110); Anion Gap 14 mmol/L (10-20); BUN (Urea Nitrogen) 13 mg/dL (8.4-25.7); Calc. Creatinine Clearance 179 mL/min (70-130); Calcium 8.3 mg/dL (7.8-10.44); Carbon Dioxide 23 mmol/L (23-31); Chloride 98 mmol/L (98-107); Estimated GFR 103; Globulin 2.3 g/dL (2.4-3.5); Glucose 184 mg/dL (80-115); Magnesium 2.1 mg/dL (1.6-2.6); Potassium 3.9 mmol/L (3.5-5.1); Protein, Total 5.8 g/dL (5.8-8.1); Sodium 131 mmol/L (136-145)
[2022-07-19] MEDS: HumaLOG 300 UNITS/3 ML VIAL SC PRN ×4 (06:44→21:10)
[2022-07-19] MEDS: Rifaximin 550 MG TAB PO SCH ×2 (08:19→21:10)
[2022-07-19] MEDS: Folic Acid 1 MG TAB PO SCH (08:19)
[2022-07-19] MEDS: Spironolactone 100 MG TAB PO SCH (08:19)
[2022-07-19] MEDS: Multivit, Therapeutic 1 TAB PO SCH (08:20)
[2022-07-19] MEDS: Lansoprazole 15 MG/5 ML (BATCHED)UDCUP PO SCH ×2 (08:20→21:07)
[2022-07-19] MEDS: Thiamine HCl 200 MG/2 ML VIAL SLOW IVP SCH (08:26)
[2022-07-19] MEDS: prednisoLONE 10 MG ODT TAB PO SCH (10:36)
[2022-07-19] MEDS: pyridOXINE 50 MG (B6) TAB PO SCH (21:10)
[2022-07-20 06:06] LABS: #Eosinphils 0.1 thou/uL (0.0-0.7); #Lymphocytes 1.3 thou/uL (1.20-3.40); #Monocytes 1.2 thou/uL (0.11-0.59); #Neutrophils 10.2 thou/uL (1.40-6.50); %Basophils 0.3 % (0.0-1.0); %Eosinophils 0.4 % (0.0-10.0); %Lymphocytes 10.3 % (21.0-51.0); %Monocytes 9.5 % (0.0-10.0); %Neutrophils 79.5 % (42.0-75.0); Hemoglobin 7.2 g/dL (14.0-18.0); Mean Corpuscular HGB CONC 31.4 g/dL (32.0-36.0); Mean Corpuscular Hemoglobin 30.5 pg (27.0-31.0); Mean Platelet Volume 7.2 fL (7.4-10.4); Platelet Count 242 10x3/uL (130-400); RBC Distribution Width 15.3 % (11.5-14.5); Red Blood Cell (RBC) Count 2.35 mill/uL (4.70-6.10); White Blood Cell (WBC) Count 12.8 10x3/uL (4.8-10.8)
[2022-07-20] MEDS: Furosemide 100 MG/10 ML VIAL SLOW IVP SCH (06:21)
[2022-07-20 06:27] LABS: ALT (SGPT) 51 U/L (8-55); AST (SGOT) 58 U/L (5-34); Albumin 3.5 g/dL (3.4-4.8); Alkaline Phosphatase 149 U/L (40-110); Anion Gap 8 mmol/L (10-20); BUN (Urea Nitrogen) 11 mg/dL (8.4-25.7); Calc. Creatinine Clearance 187 mL/min (70-130); Calcium 8.8 mg/dL (7.8-10.44); Carbon Dioxide 30 mmol/L (23-31); Chloride 99 mmol/L (98-107); Estimated GFR 104; Globulin 2.5 g/dL (2.4-3.5); Glucose 150 mg/dL (80-115); Potassium 3.8 mmol/L (3.5-5.1)
[2022-07-20 06:37] LABS: Sodium 133 mmol/L (136-145)
[2022-07-20] MEDS: prednisoLONE 10 MG ODT TAB PO SCH (08:50)
[2022-07-20] MEDS: Rifaximin 550 MG TAB PO SCH ×2 (08:50→21:41)
[2022-07-20] MEDS: Folic Acid 1 MG TAB PO SCH (08:50)
[2022-07-20] MEDS: Spironolactone 100 MG TAB PO SCH (08:50)
[2022-07-20] MEDS: Multivit, Therapeutic 1 TAB PO SCH (08:50)
[2022-07-20] MEDS: Thiamine HCl 200 MG/2 ML VIAL SLOW IVP SCH (08:51)
[2022-07-20] MEDS: Lansoprazole 15 MG/5 ML (BATCHED)UDCUP PO SCH ×2 (08:51→21:40)
[2022-07-20 10:20] VITALS: BMI 38.5
[2022-07-20] MEDS: HumaLOG 300 UNITS/3 ML VIAL SC PRN ×3 (12:56→21:41)
[2022-07-20] MEDS: pyridOXINE 50 MG (B6) TAB PO SCH (21:41)
[2022-07-21] MEDS: Furosemide 100 MG/10 ML VIAL SLOW IVP SCH (05:58)
[2022-07-21] MEDS: HumaLOG 300 UNITS/3 ML VIAL SC PRN ×2 (05:59→11:32)
[2022-07-21 06:25] LABS: #Basophils 0.1 thou/uL (0.0-0.2); #Eosinphils 0.1 thou/uL (0.0-0.7); #Lymphocytes 1.7 thou/uL (1.20-3.40); #Monocytes 1.2 thou/uL (0.11-0.59); #Neutrophils 9.3 thou/uL (1.40-6.50); %Basophils 0.5 % (0.0-1.0); %Eosinophils 0.9 % (0.0-10.0); %Lymphocytes 13.9 % (21.0-51.0); %Monocytes 9.4 % (0.0-10.0); %Neutrophils 75.3 % (42.0-75.0); Hemoglobin 7.2 g/dL (14.0-18.0); Mean Corpuscular HGB CONC 30.8 g/dL (32.0-36.0); Mean Corpuscular Hemoglobin 29.7 pg (27.0-31.0); Mean Corpuscular Volume 96.4 fl (78.0-98.0); Mean Platelet Volume 7.2 fL (7.4-10.4); Platelet Count 234 10x3/uL (130-400); RBC Distribution Width 15.6 % (11.5-14.5); Red Blood Cell (RBC) Count 2.43 mill/uL (4.70-6.10); White Blood Cell (WBC) Count 12.3 10x3/uL (4.8-10.8)
[2022-07-21 06:48] LABS: ALT (SGPT) 49 U/L (8-55); AST (SGOT) 50 U/L (5-34); Albumin 3.1 g/dL (3.4-4.8); Alkaline Phosphatase 130 U/L (40-110); Anion Gap 9 mmol/L (10-20); BUN (Urea Nitrogen) 12 mg/dL (8.4-25.7); Calc. Creatinine Clearance 174 mL/min (70-130); Calcium 8.7 mg/dL (7.8-10.44); Carbon Dioxide 30 mmol/L (23-31); Chloride 98 mmol/L (98-107); Estimated GFR 104; Globulin 2.4 g/dL (2.4-3.5); Glucose 189 mg/dL (80-115); Magnesium 2.2 mg/dL (1.6-2.6); Potassium 3.8 mmol/L (3.5-5.1); Protein, Total 5.5 g/dL (5.8-8.1); Sodium 133 mmol/L (136-145)
[2022-07-21] MEDS: Folic Acid 1 MG TAB PO SCH (08:27)
[2022-07-21] MEDS: Multivit, Therapeutic 1 TAB PO SCH (08:27)
[2022-07-21] MEDS: Lansoprazole 15 MG/5 ML (BATCHED)UDCUP PO SCH (08:27)
[2022-07-21] MEDS: Spironolactone 100 MG TAB PO SCH (08:27)
[2022-07-21] MEDS: Rifaximin 550 MG TAB PO SCH (08:27)
[2022-07-21] MEDS: Thiamine HCl 200 MG/2 ML VIAL SLOW IVP SCH (08:27)
[2022-07-21] MEDS: prednisoLONE 10 MG ODT TAB PO SCH (08:28)
[2022-07-21] MEDS ORDERED: Furosemide 100 MG/10 ML VIAL SLOW IVP SCH (12:00)
[2022-07-21] MEDS ORDERED: Iron, Sodium Ferric Gluconate 250 MG in Sodium Chloride 0.9% 250 ML 250 ML IVPB SCH (15:15)
[2022-07-21 15:23] VITALS: BP 130/65; TEMP 98.7
== END 2022-07-21 15:17 | disposition home or self-care (01) | DRG 432 ==
LOC: ERS 16:56 → EDBD 16:56 → ERHOLD 18:47 → IMCU/EMU 22:54 → SURG A 07-12 05:55
PROVIDERS: ADMIT Internal Medicine; ATTEND Internal Medicine
PROC: 30233K1 Transfusion of Nonautologous Frozen Plasma into Peripheral Vein, Percutaneous Approach (ICD-10-PCS; 2022-07-07)
PROC: 30233N1 Transfusion of Nonautologous Red Blood Cells into Peripheral Vein, Percutaneous Approach (ICD-10-PCS; 2022-07-07)
PROC: HZ2ZZZZ Detoxification Services for Substance Abuse Treatment (ICD-10-PCS; 2022-07-07)
PROC: 06L38CZ Occlusion of Esophageal Vein with Extraluminal Device, Via Natural or Artificial Opening Endoscopic (ICD-10-PCS; principal; 2022-07-08)
PROC: 0W9G3ZZ Drainage of Peritoneal Cavity, Percutaneous Approach (ICD-10-PCS; 2022-07-18)
DX: K70.31 Alcoholic cirrhosis of liver with ascites (principal); G92.8 Other toxic encephalopathy; I85.11 Secondary esophageal varices with bleeding; D62 Acute posthemorrhagic anemia; E87.1 Hypo-osmolality and hyponatremia; E87.20 Acidosis, unspecified; K76.6 Portal hypertension; F10.239 Alcohol dependence with withdrawal, unspecified; Z20.822 Contact with and (suspected) exposure to COVID-19; K76.82 Hepatic encephalopathy; K70.11 Alcoholic hepatitis with ascites; E88.89 Other specified metabolic disorders; T73.0XXA Starvation, initial encounter; R73.9 Hyperglycemia, unspecified; Y90.7 Blood alcohol level of 200-239 mg/100 ml; F10.229 Alcohol dependence with intoxication, unspecified; R74.01 Elevation of levels of liver transaminase levels; E87.6 Hypokalemia; E87.70 Fluid overload, unspecified; T42.4X5A Adverse effect of benzodiazepines, initial encounter; Z79.899 Other long term (current) drug therapy
CPT/HCPCS: 36415; 36416; 36430; 49083; 70450; 71045; 76705; 80048; 80053; 80306; 80307; 81001; 82010; 82042; 82103; 82140; 82248; 82390; 82805; 83036; 83516; 83605; 83690; 83735; 83930; 84100; 84157; 84300; 84439; 84443; 84478; 84481; 84484; 85014; 85018; 85025; 85049; 85060; 85384; 85610; 85730; 86015; 86038; 86225; 86704; 86706; 86803; 86850; 86900; 86901; 87340; 87389; 87811; 89051; 93005; 93010; 96365; 96366; 96368; 96376; C9113; J0171; J0696; J1815; J1940; J2060; J2250; J2354; J2405; J2704; J2765; J3411; J3475; J3490; J7042; J7050; J7070; J7120; P9016; P9047; P9059; Q0162; U0002

== ENCOUNTER 2022-07-31 06:26 | Day surgery (SDC) | payer SELFPAY ==
[2022-07-30 10:16] VITALS: BMI 37.3
[2022-07-31 07:51] LABS: #Eosinphils 0.1 thou/uL (0.0-0.7); #Lymphocytes 1.3 thou/uL (1.20-3.40); #Monocytes 1.3 thou/uL (0.11-0.59); #Neutrophils 8.9 thou/uL (1.40-6.50); %Basophils 0.3 % (0.0-1.0); %Eosinophils 0.8 % (0.0-10.0); %Lymphocytes 11.3 % (21.0-51.0); %Monocytes 11.1 % (0.0-10.0); %Neutrophils 76.5 % (42.0-75.0); Hemoglobin 7.6 g/dL (14.0-18.0); Mean Corpuscular HGB CONC 30.5 g/dL (32.0-36.0); Mean Corpuscular Hemoglobin 27.8 pg (27.0-31.0); Mean Platelet Volume 7.8 fL (7.4-10.4); Platelet Count 223 10x3/uL (130-400); RBC Distribution Width 15.3 % (11.5-14.5); Red Blood Cell (RBC) Count 2.73 mill/uL (4.70-6.10); White Blood Cell (WBC) Count 11.6 10x3/uL (4.8-10.8)
[2022-07-31 08:11] LABS: ALT (SGPT) 32 U/L (8-55); AST (SGOT) 38 U/L (5-34); Albumin 3.2 g/dL (3.4-4.8); Alkaline Phosphatase 138 U/L (40-110); Anion Gap 13 mmol/L (10-20); BUN (Urea Nitrogen) 15 mg/dL (8.4-25.7); Bilirubin, Total 1.5 mg/dL (0.2-1.2); Calc. Creatinine Clearance 142 mL/min (70-130); Calcium 8.9 mg/dL (7.8-10.44); Carbon Dioxide 26 mmol/L (23-31); Chloride 99 mmol/L (98-107); Estimated GFR 99; Globulin 3.2 g/dL (2.4-3.5); Glucose 205 mg/dL (80-115); Potassium 3.9 mmol/L (3.5-5.1); Protein, Total 6.4 g/dL (5.8-8.1); Sodium 134 mmol/L (136-145)
[2022-07-31] MEDS ORDERED: PROPOFOL 200 MG/20 ML VIAL ONE (08:57)
== END 2022-07-31 10:43 | disposition home or self-care (01) ==
LOC: SDC 06:26
PROVIDERS: ATTEND Internal Medicine
PROC: 06L38CZ Occlusion of Esophageal Vein with Extraluminal Device, Via Natural or Artificial Opening Endoscopic (ICD-10-PCS; principal; 2022-07-31)
DX: K76.6 Portal hypertension (principal); K31.89 Other diseases of stomach and duodenum; I85.10 Secondary esophageal varices without bleeding; K70.30 Alcoholic cirrhosis of liver without ascites; K70.10 Alcoholic hepatitis without ascites; Z79.52 Long term (current) use of systemic steroids; Z79.899 Other long term (current) drug therapy
CPT/HCPCS: 80053; 85025; J2704